=== PATIENT | female | born 1980 | race Caucasian/White ===

== ENCOUNTER 2023-05-24 09:15 | Emergency (ER) | payer OTHER ==
[~2023-05-24] VITALS: Ht 157.5 cm; Wt 97.5 kg
[2023-05-24 09:27] VITALS: BP 136/77; PULSE 99; RESP 18; TEMP 97.4; O2SAT 100
[2023-05-24] MEDS ORDERED: cefTRIAXone 500 MG in LIDOCAINE MPF 1% 1 ML IM ONE (10:15)
[2023-05-24] MEDS ORDERED: LIDOCAINE MPF 1% 5 ML ONE (10:41)
[2023-05-24] MEDS ORDERED: cefTRIAXone 500 MG VIAL ONE (10:41)
[2023-05-24 11:25] LABS: APPEARANCE,URINE CLEAR (CLEAR); BILIRUBIN,URINE NEGATIVE (NEGATIVE); BLOOD, URINE NEGATIVE (NEGATIVE); COLOR,URINE YELLOW (YELLOW); LEUKOCYTE ESTERASE ,URINE NEGATIVE (NEGATIVE); NITRITE, URINE NEGATIVE (NEGATIVE); PROTEIN,URINE NEGATIVE (NEGATIVE); UGLUCOSE NEGATIVE (NEGATIVE); UROBILINOGEN,URINE 0.2 EU/dL (0.2 - 1)
[2023-05-24] MEDS ORDERED: DOXY-690 PO (11:39)
[2023-05-24] MEDS ORDERED: METR-435 PO (11:39)
[2023-05-24 11:47] VITALS: BP 136/77; PULSE 99; RESP 18; TEMP 97.4; O2SAT 100
== END 2023-05-24 11:47 | disposition home or self-care (01) ==
LOC: MED 09:15
DX: N73.9 Female pelvic inflammatory disease, unspecified (principal); Z79.2 Long term (current) use of antibiotics
CPT/HCPCS: 81003; 81025; 87491; 96372; 99283; J0696; J2001

== ENCOUNTER 2023-06-07 17:01 | Emergency (ER) | payer OTHER ==
[~2023-06-07] VITALS: Ht 157.5 cm; Wt 99.8 kg
[~2023-06-07 17:01] MED LIST: DOXY-690 PO; METR-435 PO
[2023-06-07 17:06] VITALS: BP 128/79; PULSE 99; RESP 18; TEMP 97.7; O2SAT 100
[2023-06-07 18:12] VITALS: BP 128/79; PULSE 99; RESP 18; TEMP 97.7; O2SAT 100
[2023-06-08] MEDS ORDERED: CEPH-588 PO (10:11)
== END 2023-06-07 18:12 | disposition left against medical advice (07) ==
LOC: MED 17:01
DX: A53.9 Syphilis, unspecified (principal); Z53.21 Procedure and treatment not carried out due to patient leaving prior to being seen by health care provider
CPT/HCPCS: 99281

== ENCOUNTER 2023-06-08 08:06 | Emergency (ER) | payer OTHER ==
[~2023-06-08] VITALS: Ht 157.5 cm; Wt 97.5 kg
[2023-06-08 08:08] VITALS: BP_SYST 122; BP_SYST 178; BP_DIAS 79; BP_DIAS 91; PULSE 105; PULSE 78; RESP 15; TEMP 97.8; TEMP 98; O2SAT 95; O2SAT 96
[2023-06-08] MEDS ORDERED: KETOROLAC 30 MG/ML VIAL IM ONE (09:10)
[2023-06-08] MEDS ORDERED: PENICILLIN G BENZATHINE L-A 1.2 MU/2 ML SYR IM ONE (09:10)
[2023-06-08] MEDS ORDERED: CEPH-588 PO (10:11)
[2023-06-08 10:40] VITALS: BP 135/79; PULSE 88; RESP 15; TEMP 98; O2SAT 98
== END 2023-06-08 10:40 | disposition home or self-care (01) ==
LOC: MED 08:06
DX: A53.9 Syphilis, unspecified (principal); L03.115 Cellulitis of right lower limb; Z79.899 Other long term (current) drug therapy
CPT/HCPCS: 96372; 99284; J0561; J1885